=== PATIENT | male | born 1955 | race Caucasian/White ===

== ENCOUNTER 2019-11-26 10:46 | Emergency (ER) | payer BC, SELFPAY ==
[~2019-11-26] VITALS: Ht 172.7 cm; Wt 120.2 kg
[2019-11-26 10:49] VITALS: Ht 172.7 cm; Wt 120.2 kg
[2019-11-26 12:26] LABS: BASOPHIL % 0.6 % (0-2); PLATELET COUNT 205 x10^3mcL (130-400); RED CELL DISTRIBUTION WIDTH 13.2 % (11.5-14.5)
[2019-11-26 12:52] LABS: ALBUMIN 4.1 g/dL (3.4-5.0); ALKALINE PHOSPHATASE 95 U/L (46-116); ALT/SGPT 90 U/L (16-63); AST/SGOT 51 U/L (15-37); BILIRUBIN TOTAL 0.9 mg/dL (0.20-1.00); CALCIUM 9.4 mg/dL (8.5-10.1); CARBON DIOXIDE 32.3 mmol/L (21-32); CHLORIDE SERUM 102 mmol/L (98-107); CHOLESTEROL 137 mg/dL (<200); CREATININE SERUM 1.1 mg/dL (0.7-1.3); GFR1 > 60 mL/min; GLUCOSE SERUM 112 mg/dL (74-106); SODIUM SERUM 137 mmol/L (136-145)
[2019-11-26 14:14] VITALS: BP 140/74
== END 2019-11-26 14:14 | disposition home or self-care (01) ==
LOC: ED 10:46
PROVIDERS: Specialist
DX: K42.9 Umbilical hernia without obstruction or gangrene (principal); R53.1 Weakness; E66.9 Obesity, unspecified; R91.1 Solitary pulmonary nodule; Z20.828 Contact with and (suspected) exposure to other viral communicable diseases
CPT/HCPCS: G0480; Q0092; U0003-CS